=== PATIENT | female | born 1950 | race Hispanic/Latino ===

== ENCOUNTER 2019-09-13 23:04 | Emergency (ER) | payer SELFPAY ==
[2019-09-14 00:10] VITALS: BP 132/96
== END 2019-09-14 04:57 | disposition left against medical advice (07) ==
LOC: EDBD → ED 23:04
DX: R03.0 Elevated blood-pressure reading, without diagnosis of hypertension (principal); Z53.21 Procedure and treatment not carried out due to patient leaving prior to being seen by health care provider